=== PATIENT | male | born 1975 | race Caucasian/White ===

== ENCOUNTER → 2020-03-18 | Outpatient (CLI) | payer BC ==
--- NOTE | 2020-03-19 09:22 | NUR ---
Patient notified he is positive for COVID. Isolation explained.
== END ==
LOC: LABNPT 08:22
PROVIDERS: ATTEND Family Medicine
DX: U07.1 COVID-19 (principal)
CPT/HCPCS: 87635

== ENCOUNTER 2021-03-16 12:52 | Emergency (ER) | payer OTHER, BC ==
[~2021-03-16] VITALS: Ht 185.4 cm; Wt 115.0 kg
[2021-03-16] MEDS ORDERED: methylPREDNISolone 125 MG (Solu-MEDROL) VIAL ONE (13:03)
[2021-03-16] MEDS ORDERED: EPINEPHrine INJECTION 1 MG/ML AMP ONE (13:03)
[2021-03-16] MEDS ORDERED: FAMOTIDINE 20MG/2ML IV (PEPCID) ONE (13:03)
[2021-03-16] MEDS ORDERED: FAMOTIDINE 20MG/2ML IV (PEPCID) IVP ONE (13:15)
[2021-03-16] MEDS ORDERED: methylPREDNISolone 125 MG (Solu-MEDROL) VIAL IVP ONE (13:15)
--- NOTE | 2021-03-16 13:15 | ED General ---
General Chief Complaint: Allergic Reaction Stated Complaint: ALLERGIC REACTION WASP STING Source of Information: Patient Exam Limitations: No Limitations History of Present Illness Date Seen by Provider: Mar 16, 2021 Time Seen by Provider: 13:12 Initial Comments To ER with allergic reaction to a wasp sting. 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 This 1 stung the back of the left shoulder at 1220. At 1240 he was given 75 mg of Benadryl orally by his . Comes to ER with reports of dry mouth, throat tightness. No wheezing no nausea no abdominal discomfort. Timing/Duration: 1-2 Days Severity: Moderate Associated Systoms: Denies Symptoms Allergies and Home Medications Allergies Coded Allergies: bee venom (honey bee) (Unverified Allergy, Unknown, 01/20/14) Patient Home Medication List Home Medication List Reviewed: Yes Review of Systems Review of Systems Constitutional: see HPI EENTM: see HPI Respiratory: no symptoms reported Cardiovascular: no symptoms reported Genitourinary: no symptoms reported Musculoskeletal: no symptoms reported Skin: no symptoms reported Psychiatric/Neurological: No Symptoms Reported Hematologic/Lymphatic: No Symptoms Reported Immunological/Allergic: no symptoms reported Physical Exam Vital Signs Vital Signs - First Documented 03/16/21 13:00 Temp 36.3 Pulse 84 Resp 20 B/P (MAP) 132/101 (111) Pulse Ox 97 Capillary Refill : Height, Weight, BMI Height: 6'1.00" Weight: 255lbs. oz. 115.071796qw; BMI Method: General Appearance: No Apparent Distress, WD/WN Eyes: Bilateral Eye Normal Inspection, Bilateral Eye PERRL, Bilateral Eye EOMI Neck: Full Range of Motion, Normal Inspection Respiratory: No Accessory Muscle Use, No Respiratory Distress Cardiovascular: Regular Rate, Rhythm, Normal Peripheral Pulses Gastrointestinal: Normal Bowel Sounds, Non Tender, Soft Extremity: Normal Capillary Refill, Normal Inspection Neurologic/Psychiatric: Alert, Oriented x3 Skin: Normal Color, Warm/Dry Comments 1314-no hives no stridor no wheezing no hypotension no tachycardia. IV access established by hi 18-gauge right antecubital fossa. He was given 20 mg of Pepcid and 125 mg of Solu-Medrol. We will let him sleep and observe for a while. Progress/Results/Core Measures Suspected Sepsis SIRS Temperature: Pulse: Respiratory Rate: Blood Pressure / Mean: Results/Orders My Orders Orders - SUKHJINDER LAM APRN Epinephrine 1 Mg Injection (Adrenalin I (03/16/21 13:03) Methylprednisolone Sod Succ (Solu-Medrol (03/16/21 13:03) Famotidine Injection (Pepcid Injection) (03/16/21 13:03) Methylprednisolone Sod Succ (Solu-Medrol (03/16/21 13:15) Famotidine Injection (Pepcid Injection) (03/16/21 13:15) Medications Given in ED Current Medications Medications Dose Ordered Sig/Kacie Route Start Time Stop Time Status Last Admin Dose Admin Famotidine 20 mg STK-MED ONCE .ROUTE 03/16/21 13:03 03/16/21 13:05 DC 03/16/21 13:04 20 MG Methylprednisolone Sodium Succinate 125 mg STK-MED ONCE .ROUTE 03/16/21 13:03 03/16/21 13:05 DC 03/16/21 13:04 125 MG Vital Signs/I&O 03/16/21 13:00 Temp 36.3 Pulse 84 Resp 20 B/P (MAP) 132/101 (111) Pulse Ox 97 Capillary Refill : Departure Impression Primary Impression: Wasp sting Additional Impression: History of anaphylactic shock Disposition: HOME, SELF-CARE Condition: Stable Departure-Patient Inst. Referrals: LAURA LAFLEUR MD (PCP/Family) Primary Care Physician SUKHJINDER LAM APRN Mar 16, 2021 13:15
[2021-03-16] MEDS ORDERED: LORazepam INJ 2 MG/ML (ATIVAN) VIAL ONE (13:42)
[2021-03-16] MEDS ORDERED: LORazepam INJ 2 MG/ML (ATIVAN) VIAL IVP ONE (14:00)
[2021-03-16 17:22] VITALS: BP 118/90
== END 2021-03-16 14:52 | disposition home or self-care (01) ==
LOC: EDUNIT# 12:52 → ER 12:54
DX: T63.461A Toxic effect of venom of wasps, accidental (unintentional), initial encounter (principal)